=== PATIENT | female | born 1985 | race American Indian/Alaskan Native ===

== ENCOUNTER 2017-08-12 08:08 | Emergency (ER) | payer OTHER ==
[2017-08-12 08:14] VITALS: BP 127/70; PULSE 73; RESP 18; TEMP 98.9; O2SAT 98
[2017-08-12] MEDS ORDERED: Sodium Chloride 0.9% 1,000 ML IV STA (09:08)
[2017-08-12 09:51] LABS: BASO % 0.4 % (0.0-2.0); EOS # 0.1 K/uL (0.0-0.7); HEMOGLOBIN 13.5 g/dL (12.0-16.0); LYMPH # 2.2 K/uL (1.0-4.3); MEAN CELL VOLUME 88.3 fl (81.0-99.0); MEAN CORPUSCULAR HEMOGLOBIN 28.8 pg (27.0-31.0); MEAN CORPUSCULAR HGB CONC 32.7 g/dL (33.0-37.0); MEAN PLATELET VOLUME 8.1 fl (7.2-11.7); MONO # 0.5 K/uL (0.0-0.8); MONO % 7.7 % (0.0-10.0); NEUT # 3.7 K/uL (1.8-7.0); NEUT % 56.9 % (50.0-75.0); NRBC % 0.1 % (0.0-0.0); RBC 4.67 Mil/uL (3.80-5.20); RED CELL DISTRIBUTION WIDTH 13.5 % (11.5-14.5); WHITE BLOOD COUNT 6.4 K/uL (4.8-10.8)
[2017-08-12 09:52] LABS: SQUAMOUS EPITHIAL 2 /hpf (0-5); URINE BACTERIA OCC (<OCC); URINE BILIRUBIN NEGATIVE (NEGATIVE); URINE BLOOD NEGATIVE (NEGATIVE); URINE CLARITY CLOUDY (Clear); URINE COLOR YELLOW (YELLOW); URINE GLUCOSE (UA) NEG (Normal); URINE LEUKOCYTE ESTERASE NEG Leu/uL (Negative); URINE NITRATE NEGATIVE (NEGATIVE); URINE PROTEIN NEGATIVE (NEGATIVE); URINE UROBILINOGEN 0.2-1.0 mg/dL (0.2-1.0)
[2017-08-12 10:10] LABS: ALB/GLOB RATIO 1.2 (1.0-2.1); ALBUMIN 4.2 g/dL (3.5-5.0); ALT/SGPT 31 U/L (9-52); AST/SGOT 22 U/L (14-36); BLOOD UREA NITROGEN 15 mg/dl (7-17); CALCIUM 9.6 mg/dL (8.4-10.2); GFR AFRICAN-AMERICAN > 60; GFR NON-AFRICAN AMERICAN > 60; LIPASE 160 U/L (23-300)
[2017-08-12] MEDS ORDERED: Sodium Chloride 0.9% 50 ML IV ONE (10:14)
[2017-08-12] MEDS ORDERED: Iohexol 300 100 ML IJ ONE (10:14)
--- NOTE | 2017-08-12 10:51 | ED PDOC ---
HPI: Abdomen Time Seen by Provider: 08/12/17 09:07 Chief Complaint (Nursing): Abdominal Pain Chief Complaint (Provider): abd pain, vomiting, malaise History Per: Patient History/Exam Limitations: no limitations Onset/Duration Of Symptoms: Days (2), Gradual Current Symptoms Are (Timing): Still Present Severity: Moderate Location Of Pain/Discomfort: RLQ Quality Of Discomfort: Sharp Associated Symptoms: Chills, Nausea, Vomiting, Loss Of Appetite. denies: Diarrhea Exacerbating Factors: None Alleviating Factors: None Last Bowel Movement: Today Additional Complaint(s): 32yo female sent by PMD for r/o appendicitis, c/o RLQ pain associated w nausea, loss appetite and vomiting yesterday. No diarrhea, melena or BRBPR. Also notes mild headache and malaise. Past Medical History Reviewed: Historical Data, Nursing Documentation, Vital Signs Vital Signs: Last Vital Signs Temp 98.9 F 08/12/17 08:13 Pulse 73 08/12/17 08:13 Resp 18 08/12/17 08:13 BP 127/70 08/12/17 08:13 Pulse Ox 98 08/12/17 10:53 - Medical History PMH: Arthritis, Asthma, HTN, Pancreatitis Denies: Chronic Kidney Disease - Surgical History Surgical History: Cholecystectomy - Family History Family History: States: Unknown Family Hx - Living Arrangements Living Arrangements: With Family - Social History Current smoker - smoking cessation education provided: No - Immunization History Hx Tetanus Toxoid Vaccination: No Hx Influenza Vaccination: No Hx Pneumococcal Vaccination: No - Home Medications Home Medications: Ambulatory Orders Medication Instructions Recorded Albuterol Sulfate [Albuterol 0.09 mg IH PRN PRN 05/07/15 Sulfate Hfa] Fluticasone/Vilanterol [Breo 1 each IH DAILY 06/08/16 Ellipta 200-25 Mcg INH] Albuterol 0.083% [Albuterol 0.083% 3 ml IH PRN PRN #0 neb 06/09/16 Inhal Morenita (2.5 mg/3 ml) UD] Aspirin [Adult Low Dose Aspirin EC] 2 tab PO DAILY PRN #0 tablet 06/09/16 Omeprazole Magnesium [Prilosec Otc] 20 mg PO BID #0 06/09/16 Ciprofloxacin [Cipro] 500 mg PO BID #14 tab 08/12/17 Ibuprofen [Motrin Tab] 600 mg PO Q6 PRN #15 tab 08/12/17 Ondansetron [Zofran] 4 mg PO Q6H PRN #10 tab 08/12/17 metroNIDAZOLE [Flagyl] 500 mg PO TID #21 tab 08/12/17 - Allergies Allergies/Adverse Reactions: Allergies Allergy/AdvReac Type Severity Reaction Status Date / Time acetaminophen [From Tylenol] Allergy DIZZINESS Verified 10/26/15 14:16 codeine Allergy DIZZINESS Verified 10/26/15 14:16 oxycodone Allergy DIZZINESS Verified 10/26/15 14:16 Review of Systems ROS Statement: Except As Marked, All Systems Reviewed And Found Negative Constitutional: Positive for: Chills, Weakness, Malaise. Negative for: Fever Cardiovascular: Negative for: Chest Pain, Palpitations Respiratory: Negative for: Cough, Shortness of Breath Gastrointestinal: Positive for: Nausea, Vomiting, Abdominal Pain Genitourinary Female: Negative for: Dysuria, Frequency Musculoskeletal: Negative for: Neck Pain Skin: Negative for: Rash, Lesions, Jaundice Neurological: Negative for: Weakness, Numbness Physical Exam - Reviewed Nursing Documentation Reviewed: Yes Vital Signs Reviewed: Yes - Physical Exam Appears: Positive for: Well, Non-toxic, No Acute Distress Head Exam: Positive for: ATRAUMATIC, NORMAL INSPECTION, NORMOCEPHALIC Skin: Positive for: Normal Color, Warm, DRY Eye Exam: Positive for: EOMI, Normal appearance, PERRL ENT: Positive for: Normal ENT Inspection Neck: Positive for: Normal, Painless ROM Cardiovascular/Chest: Positive for: Regular Rate, Rhythm Respiratory: Positive for: CNT, Normal Breath Sounds Gastrointestinal/Abdominal: Positive for: Bowel Sounds, Soft, Tenderness (RLQ tender). Negative for: Guarding, Rebound Back: Positive for: Normal Inspection Extremity: Positive for: Normal ROM. Negative for: Tenderness, Deformity Neurologic/Psych: Positive for: Alert, Oriented. Negative for: Motor/Sensory Deficits - Laboratory Results Result Diagrams: 08/12/17 09:42 08/12/17 09:42 - ECG O2 Sat by Pulse Oximetry: 98 Medical Decision Making Medical Decision Making: workup initiated for abd pain r/o appendicitis labs reviewed WBC normal LFTs unremarkable Accession No. : [id number] Patient Name / ID : DOUGLAS ALAN / [id number] Exam Date : 08/12/2017 10:14:17 ( Approved ) Study Comment : Sex / Age : F / 32Y Creator : Mingo Fowler MD Dictator : Mingo Fowler MD Pbx Manager : Loan Specialist : Mingo Fowler MD Approver2 : Report Date : 08/12/2017 11:11:21 My Comment : PROCEDURE: CT Abdomen and Pelvis with contrast HISTORY: RLQ pain COMPARISON: None. TECHNIQUE: Contrast dose: 100 cc Omnipaque 300 Radiation dose: Total exam DLP = 894.63 mGy-cm. This CT exam was performed using one or more of the following dose reduction techniques: Automated exposure control, adjustment of the mA and/or kV according to patient size, and/or use of iterative reconstruction technique. FINDINGS: LOWER THORAX: Unremarkable. LIVER: Mild hepatomegaly. The liver measures 20.6 cm craniocaudal. Smooth contour. No mass. No biliary dilatation. GALLBLADDER AND BILE DUCTS: Status post cholecystectomy. PANCREAS: Unremarkable. No gross lesion or ductal dilatation. SPLEEN: Unremarkable. ADRENALS: Unremarkable. No mass. KIDNEYS AND URETERS: Unremarkable. No hydronephrosis. No solid mass. VASCULATURE: Unremarkable. No aortic aneurysm. BOWEL: Status post gastric sleeve procedure. Circumferential mural thickening of the ascending colon consistent with nonspecific colitis. This involves the hepatic flexure of the colon. The remainder of the colon is unremarkable in appearance. There is no bowel obstruction. There are no other abnormal bowel loops identified. APPENDIX: Normal appendix. PERITONEUM: Unremarkable. No free fluid. No free air. LYMPH NODES: Unremarkable. No enlarged lymph nodes. BLADDER: Unremarkable. REPRODUCTIVE: Unremarkable uterus. BONES: No acute fracture. OTHER FINDINGS: None. IMPRESSION: Nonspecific mural thickening of the ascending colon and hepatic flexure consistent with nonspecific colitis. Consider the possibility of infectious etiology. No evidence of acute appendicitis. Status post gastric sleeve procedure. Status post cholecystectomy. Improved in ED, will give course cipro/flagyl for colitis and refer to GI. Return ER for any worse or new symptoms. Stable for outpt workup given lack of fever, lack of elev WBC, no active vomiting or diarrhea in ED. Disposition - Clinical Impression Clinical Impression: Colitis, Nausea & vomiting - Patient ED Disposition Is Patient to be Admitted: No Counseled Patient/Family Regarding: Studies Performed, Diagnosis, Need For Followup, Rx Given - Disposition Referrals: Luis Alberto Ferreira MD, PhD [Staff Provider] - Disposition: Routine/Home Disposition Time: 11:58 Condition: STABLE Additional Instructions: Drink plenty of fluids, avoid milk for 10 days. Return to ER for any worse or new symptoms, fever, pain, blood in stool or any concern. See GI doctor for further testing and possible colonoscopy. Prescriptions: Ciprofloxacin [Cipro] 500 mg PO BID #14 tab Ibuprofen [Motrin Tab] 600 mg PO Q6 PRN #15 tab PRN Reason: Pain, Moderate (4-7) metroNIDAZOLE [Flagyl] 500 mg PO TID #21 tab Ondansetron [Zofran] 4 mg PO Q6H PRN #10 tab PRN Reason: Nausea/Vomiting Instructions: Abdominal Pain (ED), Infectious Colitis (ED) Forms: [employer] (Spanish)
--- NOTE | 2017-08-12 11:13 | CT ---
PROCEDURE: CT Abdomen and Pelvis with contrast HISTORY: RLQ pain COMPARISON: None. TECHNIQUE: Contrast dose: 100 cc Omnipaque 300 Radiation dose: Total exam DLP = 894.63 mGy-cm. This CT exam was performed using one or more of the following dose reduction techniques: Automated exposure control, adjustment of the mA and/or kV according to patient size, and/or use of iterative reconstruction technique. FINDINGS: LOWER THORAX: Unremarkable. LIVER: Mild hepatomegaly. The liver measures 20.6 cm craniocaudal. Smooth contour. No mass. No biliary dilatation. GALLBLADDER AND BILE DUCTS: Status post cholecystectomy. PANCREAS: Unremarkable. No gross lesion or ductal dilatation. SPLEEN: Unremarkable. ADRENALS: Unremarkable. No mass. KIDNEYS AND URETERS: Unremarkable. No hydronephrosis. No solid mass. VASCULATURE: Unremarkable. No aortic aneurysm. BOWEL: Status post gastric sleeve procedure. Circumferential mural thickening of the ascending colon consistent with nonspecific colitis. This involves the hepatic flexure of the colon. The remainder of the colon is unremarkable in appearance. There is no bowel obstruction. There are no other abnormal bowel loops identified. APPENDIX: Normal appendix. PERITONEUM: Unremarkable. No free fluid. No free air. LYMPH NODES: Unremarkable. No enlarged lymph nodes. BLADDER: Unremarkable. REPRODUCTIVE: Unremarkable uterus. BONES: No acute fracture. OTHER FINDINGS: None. IMPRESSION: Nonspecific mural thickening of the ascending colon and hepatic flexure consistent with nonspecific colitis. Consider the possibility of infectious etiology. No evidence of acute appendicitis. Status post gastric sleeve procedure. Status post cholecystectomy.
== END 2017-08-12 12:21 | disposition home or self-care (01) ==
LOC: H.ER 08:08
DX: K52.9 Noninfective gastroenteritis and colitis, unspecified (principal); I10 Essential (primary) hypertension; J45.909 Unspecified asthma, uncomplicated; Z79.82 Long term (current) use of aspirin; Z88.5 Allergy status to narcotic agent; Z90.49 Acquired absence of other specified parts of digestive tract
CPT/HCPCS: 74177; 80053; 81003; 81025; 83690; 85025; 99283; J7040; Q9967

== ENCOUNTER 2017-09-16 16:29 | Emergency (ER) | payer OTHER ==
--- NOTE | 2017-09-16 19:00 | ED PDOC ---
HPI: SOB/CHF/COPD Time Seen by Provider: 09/16/17 18:32 Chief Complaint (Nursing): Shortness Of Breath History Per: Patient History/Exam Limitations: no limitations Onset/Duration Of Symptoms: Days (14) Current Symptoms Are (Timing): Still Present Current Respiratory Medications: Albuterol Associated Symptoms: Other (chest tightness, sore throat) Additional Complaint(s): 32 yo ,f, PMhx/o intermittent asthma, Arthritis,HTN presents c/o shortness of breath associated with chest tightness for the last 2 weeks, intermittent, during the morning. Last episode last night SOB woke her up, partially alleviated with Albuterol inhaler. Reports also sore throat started yesterday. She denies cough, fever, chills, dysuria, wheezing, n,v,abd pain, orthopnea, PND, pedal edema, sick contact . Patient reports stress at work and with her son who as ADHD and she is not sure if chest tightness and SOB is associated with asthma or panic attack. Past Medical History Vital Signs: Last Vital Signs Temp 98 F 09/16/17 21:46 Pulse 83 09/16/17 21:46 Resp 16 09/16/17 21:46 BP 113/60 09/16/17 21:46 Pulse Ox 98 09/16/17 21:46 - Medical History PMH: Arthritis, Asthma, HTN, Pancreatitis Denies: Chronic Kidney Disease - Surgical History Surgical History: Cholecystectomy - Family History Family History: States: Unknown Family Hx - Immunization History Hx Tetanus Toxoid Vaccination: No Hx Influenza Vaccination: No Hx Pneumococcal Vaccination: No - Home Medications Home Medications: Ambulatory Orders Medication Instructions Recorded Albuterol Sulfate [Albuterol 0.09 mg IH PRN PRN 05/07/15 Sulfate Hfa] Fluticasone/Vilanterol [Breo 1 each IH DAILY 06/08/16 Ellipta 200-25 Mcg INH] Albuterol 0.083% [Albuterol 0.083% 3 ml IH PRN PRN #0 neb 06/09/16 Inhal Morenita (2.5 mg/3 ml) UD] Aspirin [Adult Low Dose Aspirin EC] 2 tab PO DAILY PRN #0 06/09/16 Omeprazole Magnesium [Prilosec Otc] 20 mg PO BID #0 06/09/16 Ciprofloxacin [Cipro] 500 mg PO BID #14 tab 08/12/17 Ibuprofen [Motrin Tab] 600 mg PO Q6 PRN #15 tab 18 Ondansetron [Zofran] 4 mg PO Q6H PRN #10 tab 08/12/17 metroNIDAZOLE [Flagyl] 500 mg PO TID #21 tab 08/12/17 Albuterol 0.083% [Albuterol 0.083% 3 ml IH Q6H PRN #30 neb 09/16/17 Inhal Morenita (2.5 mg/3 ml) UD] Prednisone 50 mg PO DAILY #5 tab 09/16/17 - Allergies Allergies/Adverse Reactions: Allergies Allergy/AdvReac Type Severity Reaction Status Date / Time acetaminophen [From Tylenol] Allergy DIZZINESS Verified 09/16/17 17:21 codeine Allergy DIZZINESS Verified 09/16/17 17:21 oxycodone Allergy DIZZINESS Verified 09/16/17 17:21 Curb-65 Severity Score - CURB-65 Severity Score Confusion: No Bun >19mg/dl (>7mmol/L): No Respiratory Rate greater than/equal to 30: No Systolic BP <90 or Diastolic BP less than/equal 60mmHg: No Age >64: No Curb-65 Score: 0 Percentage 30-day mortality: 0.6% Wells Criteria for PE - Wells Criteria for Pulmonary Embolism Clinical Signs and Symptoms of DVT: No P.E is #1 Diagnosis, or Equally Likely: No Heart Rate >100: No Immobilization at least 3 days;Surgery previous 4 weeks: No Previous, objectively diagnosed PE or DVT: No Hemoptysis: No Total Score: 0 Review of Systems Cardiovascular: Positive for: Other (chest tightness) Respiratory: Positive for: Shortness of Breath, Other (sore throat) Physical Exam - Physical Exam Appears: Positive for: No Acute Distress Head Exam: Positive for: ATRAUMATIC, NORMOCEPHALIC Skin: Positive for: Normal Color Neck: Positive for: Normal Cardiovascular/Chest: Positive for: Regular Rate, Rhythm, Other (reproducible chest pain over sternal area). Negative for: Murmur Respiratory: Positive for: Normal Breath Sounds. Negative for: Rales, Rhonchi, Wheezing Gastrointestinal/Abdominal: Positive for: Soft. Negative for: Tenderness, Distended, Guarding Back: Positive for: Normal Inspection Extremity: Positive for: Normal ROM. Negative for: Tenderness, Pedal Edema Neurologic/Psych: Positive for: Alert, Oriented - Laboratory Results Result Diagrams: 09/16/17 19:34 09/16/17 19:34 - ECG O2 Sat by Pulse Oximetry: 100 Medical Decision Making Medical Decision Makin: 20 Initial impression SOB secondary to Asthma exacerbation Costochondritis. Differential PE, panic attack, CHF, bronchitis Plan CBC, CMP, troponin, Ddimer CXR 20:32 CBC, CMP, troponin, D dimer, normal CXR pending Disposition - Clinical Impression Clinical Impression: Asthma - Disposition Referrals: Shaik Piper MD [Family Provider] - Disposition Time: 21:45 Condition: STABLE Prescriptions: Albuterol 0.083% [Albuterol 0.083% Inhal Morenita (2.5 mg/3 ml) UD] 3 ml IH Q6H PRN # 30 neb PRN Reason: Shortness Of Breath Prednisone 50 mg PO DAILY #5 tab Instructions: Asthma, Adult (DC) Forms: [employer] (Frisian)
[2017-09-16] MEDS ORDERED: Albuterol-Ipratrop 3 mg / 0.5 (3 ml) UD INH STA (19:12)
[2017-09-16] MEDS ORDERED: Albuterol-Ipratrop 3 mg / 0.5 (3 ml) UD ONE (19:30)
[2017-09-16 19:45] LABS: BASO % 0.5 % (0.0-2.0); EOS # 0.1 K/uL (0.0-0.7); EOS % 1.6 % (0.0-4.0); HEMOGLOBIN 13.3 g/dL (12.0-16.0); LYMPH # 3.2 K/uL (1.0-4.3); LYMPH % 43.9 % (20.0-40.0); MEAN CELL VOLUME 88.4 fl (81.0-99.0); MEAN CORPUSCULAR HEMOGLOBIN 29.5 pg (27.0-31.0); MEAN CORPUSCULAR HGB CONC 33.4 g/dL (33.0-37.0); MONO # 0.6 K/uL (0.0-0.8); MONO % 7.6 % (0.0-10.0); NEUT # 3.4 K/uL (1.8-7.0); NEUT % 46.4 % (50.0-75.0); NRBC % 0.1 % (0.0-0.0); RBC 4.51 Mil/uL (3.80-5.20); RED CELL DISTRIBUTION WIDTH 13.6 % (11.5-14.5); WHITE BLOOD COUNT 7.4 K/uL (4.8-10.8)
[2017-09-16 19:55] LABS: ALB/GLOB RATIO 1.2 (1.0-2.1)
[2017-09-16 20:10] LABS: ALT/SGPT 20 U/L (9-52); AST/SGOT 22 U/L (14-36); BLOOD UREA NITROGEN 15 mg/dl (7-17); CALCIUM 9.3 mg/dL (8.4-10.2); GFR AFRICAN-AMERICAN > 60; GFR NON-AFRICAN AMERICAN > 60
[2017-09-16 21:47] VITALS: BP 113/60; PULSE 83; RESP 16; TEMP 98
--- NOTE | 2017-09-17 09:15 | RAD ---
HISTORY: SOB.chest tightness COMPARISON: No prior. TECHNIQUE: Chest PA and lateral FINDINGS: LUNGS: No active pulmonary disease. PLEURA: No significant pleural effusion identified. No pneumothorax apparent. CARDIOVASCULAR: Normal. OSSEOUS STRUCTURES: No significant abnormalities. VISUALIZED UPPER ABDOMEN: Right upper quadrant and epigastric region surgical clips. OTHER FINDINGS: None. IMPRESSION: No active disease.
[2017-09-17 14:55] VITALS: O2SAT 100
== END 2017-09-16 21:47 | disposition home or self-care (01) ==
LOC: H.ER 16:29
DX: J45.901 Unspecified asthma with (acute) exacerbation (principal); M94.0 Chondrocostal junction syndrome [Tietze]; Z79.82 Long term (current) use of aspirin; Z88.5 Allergy status to narcotic agent; I10 Essential (primary) hypertension; K85.90 Acute pancreatitis without necrosis or infection, unspecified